=== PATIENT | female | born 1970 | race Caucasian/White ===

== ENCOUNTER 2024-03-21 07:27 | Day surgery (SDC) | payer OTHER, SELFPAY ==
--- NOTE | 2024-03-21 08:27 | PM.HP.1 ---
History of Present Illness History of Present Illness Date Patient Seen: 03/21/24 Chief complaint: Colonoscopy Narrative: First screening colonoscopy [facility] Medical History (Updated 03/21/24 @ 08:15 by Jolynn Lee, RN) History of [place] thyroiditis Hx of diabetes mellitus History of high blood pressure Surgical History (Updated 03/21/24 @ 08:24 by Jolynn Lee, RN) Hx of tonsillectomy Hx of breast reduction, elective (~1995) Meds Home Medications and Allergies Home Medications Medication Instructions Recorded Confirmed Type bupropion HCl 150 mg 24 hr tablet, 150 mg PO QAM 03/21/24 03/21/24 History extended release clonidine HCl 0.2 mg tablet 0.2 mg PO QPM 03/21/24 03/21/24 History hydrochlorothiazide 25 mg tablet 25 mg PO DAILY 03/21/24 03/21/24 History levothyroxine 175 mcg tablet 175 mcg PO DAILY 03/21/24 03/21/24 History Allergies Allergy/AdvReac Type Severity Reaction Status Date / Time No Known Drug Allergies Allergy Verified 03/21/24 08:18 Exam Narrative Exam Narrative: Oropharynx free of lesions Chest clear to auscultation percussion Cardiac exam reveals no S3 or murmur Assessment & Plan Assessment & Plan narrative: For screening colonoscopy with no family history. Risks, benefits, alternatives have explained. Time-Based Coding :: [TOTAL MINUTES] spent with patient and on the chart (including review of chart, obtaining history, exam, reviewing outside data, placing orders, documenting exam and treatment plan, and counseling patient) on [DATE].
--- NOTE | 2024-03-21 08:28 | PM.OP.COLON ---
Operative Date/Time/Diagnoses Date of procedure: 03/21/24 Pre-op diagnosis: See indication and findings Procedure & Clinicians Study performed: Colonoscopy Indications: 1st screening colonoscopy Surgeon: Vicky Perdomo Procedure Notes Procedure in detail: After informed consent was obtained the patient was placed in left lateral decubitus position. The video colonoscope was placed in the rectum slowly advanced cecum. Preparation was good. On slow withdrawal mucosa was carefully examined. The scope was removed. The patient tolerated the procedure well. Of note is the wire on the large we will snapped in the proximal transverse colon but I was still able to complete colonoscopy to cecum regardless Blood loss none Complications none Sedation mac Findings 1. Normal colonoscopy to cecum Patient should have follow-up colonoscopy in 10 years
[2024-03-21 08:30] VITALS: BP 148/85; PULSE 74; RESP 18; TEMP 36.2; O2SAT 98
[2024-03-21] MEDS: SODIUM CHLORIDE 0.9% 1,000 ML 84 ML IV (08:45)
[2024-03-21 09:05] VITALS: BP 91/46; PULSE 62; RESP 11; TEMP 36.3; O2SAT 97
[2024-03-21 09:10] VITALS: BP 92/60; PULSE 66; RESP 16; O2SAT 98
[2024-03-21 09:15] VITALS: BP 111/70; PULSE 72; RESP 16; O2SAT 99
[2024-03-21 09:19] VITALS: BP 96/59; PULSE 68; RESP 15; TEMP 36.3; O2SAT 99
[2024-03-21 09:22] VITALS: BP 105/70; PULSE 70; RESP 16; O2SAT 99
== END 2024-03-21 09:31 | disposition home or self-care (01) ==
PROVIDERS: PCP Nurse Practitioner Family; Referring Provider Internal Medicine Gastroenterology; Visit Provider Internal Medicine Gastroenterology
PROC: 0DJD8ZZ Inspection of Lower Intestinal Tract, Via Natural or Artificial Opening Endoscopic (ICD-10-PCS; CPT 45378; principal; 2024-03-21 09:00)
DX: Z12.11 Encounter for screening for malignant neoplasm of colon (principal)
CPT/HCPCS: 45378; J2704